=== PATIENT | female | born 1965 | race Caucasian/White ===

== ENCOUNTER → 2018-04-17 | Outpatient (CLI) | payer OTHER ==
[~2018-04-17] MED LIST: BIOT5000 PO; BUPR100CR PO; PREM0.3T PO; SYNT25TA PO; TAB-TAB PO
--- NOTE | 2018-04-17 13:43 | EKG ---
Date Performed: 04/17/2018 Time Performed: 07:30:24 PTAGE: 52 years EKG: Sinus rhythm . Normal ECG PREVIOUS TRACING : 12/24/2013 11.24 DOCTOR: Slade Chang Interpretating Date/Time 04/17/2018 13:41:55
== END ==
LOC: HCAV 07:21
DX: Z01.810 Encounter for preprocedural cardiovascular examination (principal)
CPT/HCPCS: 93005